=== PATIENT | male | born 1945 | race Two or more races ===

== ENCOUNTER 2020-01-08 11:40 | Outpatient (CLI) | payer MEDICARE, BC | END 2020-01-08 23:59 | disposition home or self-care (01) | LOC: WOU 11:40 | PROVIDERS: ATTEND Surgery | DX: M72.6 Necrotizing fasciitis (principal); E11.22 Type 2 diabetes mellitus with diabetic chronic kidney disease; I12.0 Hypertensive chronic kidney disease with stage 5 chronic kidney disease or end stage renal disease; N18.6 End stage renal disease; Z99.2 Dependence on renal dialysis; Z87.891 Personal history of nicotine dependence; Z79.4 Long term (current) use of insulin; Z79.01 Long term (current) use of anticoagulants | CPT/HCPCS: G0463 ==